=== PATIENT | male | born 1985 | race Caucasian/White ===

== ENCOUNTER → 2019-12-20 11:08 | Outpatient (BNVA) | payer SELFPAY | PROVIDERS: Family Provider Nurse Practitioner; PCP Nurse Practitioner; Visit Provider Urology | DX: N41.1 Chronic prostatitis (principal); R35.0 Frequency of micturition | CPT/HCPCS: 81001 ==

== ENCOUNTER → 2020-06-19 08:07 | Outpatient (BNVA) | payer SELFPAY | PROVIDERS: Family Provider Nurse Practitioner; PCP Nurse Practitioner; Visit Provider Urology | DX: N41.1 Chronic prostatitis (principal) | CPT/HCPCS: 81001 ==

== ENCOUNTER → 2020-09-26 15:58 | Outpatient (BNVA) | payer SELFPAY | PROVIDERS: Family Provider Nurse Practitioner; PCP Nurse Practitioner; Visit Provider Urology | DX: N41.1 Chronic prostatitis (principal) | CPT/HCPCS: 81003 ==

== ENCOUNTER 2021-05-10 08:31 | Emergency (ER) | payer SELFPAY ==
[2021-05-10 08:46] VITALS: BP 110/75; PULSE 83; RESP 16; TEMP 36.6; O2SAT 96; BMI 26.5
--- NOTE | 2021-05-10 09:01 | ED_ITS ---
HPI - Male Genitourinary General: Chief complaint: Urogenital-Male Stated complaint: swollen groin area Time Seen by Provider: 05/10/21 08:55 History of Present Illness: HPI Narrative: 36-year-old male presents emergency room with prostatitis symptoms. He is chronically on ciprofloxacin for prolonged period of time. He usually sees Dr. Hernandez is worsening overnight increasing swelling. MD Complaint: testicle swelling Onset (ago): month(s) Duration: constant and progressively worsening Severity: moderate Quality: aching Associated symptoms: Reports swelling; Deny discharge, dysuria, fevers/chills, hematuria, nausea, rash, urinary incontinence, urinary retention or vomiting Review of Systems Const: Denies: fever(s), chills, body aches, change in appetite, fatigue or malaise ENMT: Denies: throat pain, ear or mastoid pain, nasal discharge or nasal congestion Card: Denies: chest pain, edema, dyspnea on exertion or orthopnea Resp: Denies: dyspnea, productive cough or non-productive cough GI: Denies: nausea or vomiting : Denies: dysuria, urinary incontinence or hematuria Skin/Breast: Denies: rash or pruritus PFSH ED PFSH: Medical History Chronic prostatitis History of torsion of testis Surgical History H/O cardiac radiofrequency ablation H/O hernia repair H/O knee surgery Family History Father Alcoholism Social History Smoking and tobacco status: former smoker Alcohol intake: current Alcohol intake frequency: few times a week Marital status: Single Current occupational status: employed Physical Exam Const: COMMON NORMALS: no acute distress GENERAL APPEARANCE: cooperative and comfortable ORIENTATION/CONSCIOUSNESS: Yes awake, Yes oriented to person, Yes oriented to place and Yes oriented to time HENMT: COMMON NORMALS: normocephalic, atraumatic and hearing grossly normal bilaterally HEAD & SCALP: normocephalic and atraumatic Neck/C-Spine: COMMON NORMALS: no JVD Resp: COMMON NORMALS: normal respiratory effort, No retractions, No use of accessory muscles and clear to auscultation bilaterally AUSCULTATION: clear to auscultation bilaterally Cardio: COMMON NORMALS: no JVD, regular rate, regular rhythm and No murmurs present (Cardio) RATE: regular rate RHYTHM: regular rhythm GI: COMMON NORMALS: Soft to palpation and No hepatosplenomegaly present AUSCULTATION: Yes normoactive bowel sounds PALPATION: Yes Soft to palpation, No Tenderness to palpation present (GI), No Guarding due to palpation present (GI) and Yes No hepatosplenomegaly present : SCROTUM: Yes Scrotal tenderness present, No erythematous and Yes other (Palpable mass of the left testicle) Extremity: COMMON NORMALS: normal to inspection, capillary refill normal, no clubbing, cyanosis or edema, no calf tenderness and no pedal edema Neuro: SENSORIUM/ORIENTATION: Yes oriented to person, Yes oriented to place and Yes oriented to time Skin: COMMON NORMALS: no rashes or lesions noted GENERAL SKIN EXAM: no rashes or lesions noted Course Vital Signs: Vital signs: Vital Signs Temperature 97.9 F 05/10/21 08:46 Pulse Rate 58 L 05/10/21 12:03 Respiratory Rate 14 05/10/21 12:03 Blood Pressure 110/60 05/10/21 12:03 Pulse Oximetry 98 05/10/21 12:03 MDM - Male MDM Narrative: Medical decision making narrative: Reviewed ultrasound with patient as well as with Dr. Hernandez. Will discharge patient home with hydrocodone diclofenac as needed continue ciprofloxacin and have him follow-up with Dr. Hernandez next week. Return if has further problems. Lab Data: Labs: Lab Results 05/10/21 05/10/21 05/10/21 Range/Units 09:15 09:19 09:19 WBC 5.5 (4.0-10.0) 10^3/ uL RBC 5.02 (4.1-5.3) 10^6/u L Hgb 15.7 (11.7-16.6) g/dL Hct 46.7 (42.0-52.0) % MCV 93.0 (80-94) fL MCH 31.3 (28.0-34.0) pg MCHC 33.6 (30.0-36.0) g/dL RDW 13.2 (12.1-15.1) % Plt Count 198 (130-400) 10^3/c mm MPV 9.9 (7.4-10.4) fL Neut % (Auto) 47.1 % Lymph % (Auto) 33.8 % [place] % (Auto) 12.7 % Eos % (Auto) 4.9 % Baso % (Auto) 1.3 % Neut # (Auto) 2.61 (1.8-7.7) 10^3/u L Lymph # (Auto) 1.9 (0.8-4.8) 10^3/u L [place] # (Auto) 0.7 (0.2-0.9) 10^3/u L Eos # (Auto) 0.3 (0.0-0.8) 10^3/u L Baso # (Auto) 0.1 (0.0-0.1) 10^3/u L Nucleated RBC % (a uto) 0 % Nucleated RBCs # 0.0 /100WBC Sodium 143 (136-145) mmol/L Potassium 4.5 (3.5-5.1) mmol/L Chloride 104 (98-107) mmol/L Carbon Dioxide 28 (22-29) mmol/L Anion Gap 15.5 (5-19) BUN 11 (6-20) mg/dL Creatinine 1.1 (0.7-1.2) mg/dL GFR Calculation 76.2 L (90-130) mL/min Glucose 76 (65-115) mg/dL Calculated Osmolal ity 294 (285-295) mOsm/k g Calcium 9.3 (8.5-10.5) mg/dL Total Bilirubin 0.8 (0.15-1.2) mg/dL AST 36 (0-40) U/L ALT 32 (0-41) U/L Alkaline Phosphata se 46 (40-130) IU/L Total Protein 6.8 (6.6-8.7) g/dL Albumin 4.7 (3.5-5.2) g/dL Globulin 2.1 (1.3-4.6) g/dL Urine Color Yellow (Yellow) Urine Appearance Clear (CLEAR) Urine pH 9 H (5-7) Ur Specific Gravit y 1.010 (1.005-1.030) Urine Protein Neg (Negative) Urine Glucose (UA) Norm (Normal) Urine Ketones Negative (Negative) Urine Blood Neg (Negative) Urine Nitrate Negative (Negative) Urine Bilirubin Neg (Negative) Prot Sulfosalicyli c Acd Negative (Negative) Urine Urobilinogen Norm (Negative) mg/dL Ur Leukocyte Suha ase Negative (Negative) Discharge Plan Discharge Patient Disposition: Home Clinical Impression: Mass of left testicle Condition: Stable Prescriptions: New hydrocodone-acetaminophen 5-325 mg tablet 1 tab PO Q6H PRN (Reason: pain) Qty: 25 RF: 0 diclofenac sodium 75 mg tablet,delayed release (DR/EC) 75 mg PO Q12H PRN (Reason: pain) Qty: 20 RF: 0 No Action Quercetin PO RF: 0 Prostate Therapy Capsule PO RF: 0 ciprofloxacin HCl 500 mg tablet See Rx Instructions .ROUTE .COMPLEX Qty: 60 RF: 4 Discharge Orders: Discharge ED (Routine); Ordered 05/10/21 Ordered By: Immanuel Pack Discharge Diet: Usual diet Discharge Activity: Limit activity as instructed Patient Instructions: Opioid Safety Activity Restrictions/Additional Instructions: Case management will call to get you set up to see the urologist. Coding Level of Care Code ED Road Mechanic for Ceci Coronel
--- NOTE | 2021-05-10 09:11 | US_ITS ---
WS: [id number] TESTICULAR ULTRASOUND HISTORY: L testicle mass/swellibng COMPARISON: 11/15/2017 TECHNIQUE: Real-time and color Doppler imaging or utilized to perform a testicular ultrasound. Right testicle: 4.8 cm x 2.9 cm x 2.0 cm. Normal size and echogenicity. No mass or torsion. Normal color Doppler is present throughout. Systolic and diastolic velocities are both present. No significant hydrocele. Right epididymis: Mildly prominent epididymis but no increased vascularity. Left testicle: 3.7 cm x 2.9 cm x 2.0 cm. There is a normal sized testicle. As seen on the sagittal view is a nodule associated with the LEFT t esticle. This corresponds to the palpable abnormality the patient is describing. This nodule is very poorly defined and isoechoic to the remaining normal testicle. This area measures 2.1 x 2.2 x 1.9 cm and there is some increased vascularity but similar to the remaining testicle. Normal color Doppler is present throughout. Systolic and diastolic velocities are both present. No significant hydrocele. Left epididymis: Mildly prominent but no increased vascularity. US/US scrotum [id number] IMPRESSION: 1. Isoechoic nodule in the LEFT testicle is associated with the palpable area that is painful and enlarging as described by the patient. This is very nearly isoechoic to the remaining testicle but there are very ill-defined borders. As this area is new and painful consider urological follow-up and possible surgica l evaluation. If surgery is not performed consider ultrasound follow-up in 4-6 weeks to be sure there is no enlargement. 2. No torsion or epididymitis.
[2021-05-10 09:27] LABS: Add Urine Microscopic? NO; Charge for UA Resulting for Rev
[2021-05-10] MEDS: ketorolac 60 mg/2 mL INJ IM (09:28)
[2021-05-10] MEDS: sodium chloride 0.9% 1,000 ML 999 ML IV (09:28)
[2021-05-10 09:29] LABS: Basophils # 0.1 10^3/uL (0.0-0.1); Basophils % 1.3 %; Eosinophils # 0.3 10^3/uL (0.0-0.8); Eosinophils % 4.9 %; Hematocrit 46.7 % (42.0-52.0); Hemoglobin 15.7 g/dL (11.7-16.6); Lymphocytes # 1.9 10^3/uL (0.8-4.8); Lymphocytes % 33.8 %; Mean Corpuscular HGB Conc 33.6 g/dL (30.0-36.0); Mean Corpuscular Hemoglobin 31.3 pg (28.0-34.0); Mean Platelet Volume 9.9 fL (7.4-10.4); Monocytes # 0.7 10^3/uL (0.2-0.9); Monocytes % 12.7 %; Neutrophils # 2.61 10^3/uL (1.8-7.7); Neutrophils % 47.1 %; Nucleated Red Blood Cells % 0 %; Platelet Count 198 10^3/cmm (130-400); Red Blood Count 5.02 10^6/uL (4.1-5.3); Red Cell Distribution Width 13.2 % (12.1-15.1); White Blood Count 5.5 10^3/uL (4.0-10.0)
[2021-05-10 09:45] LABS: Bilirubin Urine Neg (Negative); Blood Urine Neg (Negative); Glucose Urine UA Norm (Normal); Ketones Urine Negative (Negative); Leukocyte Esterase Urine Negative (Negative); Nitrate Urine Negative (Negative); Protein Urine Neg (Negative); Sulfosalicylic Acid Urine Negative (Negative); Urine Appearance Clear (CLEAR); Urine Color Yellow (Yellow); Urobilinogen Urine Norm (Negative); pH Urine 9 (5-7)
[2021-05-10 09:56] LABS: Alanine Aminotransferase 32 U/L (0-41); Albumin Level 4.7 g/dL (3.5-5.2); Alkaline Phosphatase 46 IU/L (40-130); Anion Gap 15.5 (5-19); Aspartate Amino Transferase 36 U/L (0-40); Blood Urea Nitrogen 11 mg/dL (6-20); Calcium 9.3 mg/dL (8.5-10.5); Carbon Dioxide 28 mmol/L (22-29); Chloride 104 mmol/L (98-107); Globulin 2.1 g/dL (1.3-4.6); Glomerular Filtration Rate 76.2 mL/min (90-130); Glucose 76 mg/dL (65-115); Osmolality Calculated 294 mOsm/kg (285-295); Potassium 4.5 mmol/L (3.5-5.1); Sodium 143 mmol/L (136-145); Total Bilirubin 0.8 mg/dL (0.15-1.2); Total Protein 6.8 g/dL (6.6-8.7)
[2021-05-10 10:41] VITALS: BP 100/53; RESP 16; O2SAT 98
[2021-05-10 12:03] VITALS: BP 110/60; PULSE 58; RESP 14; O2SAT 98
== END 2021-05-10 12:43 | disposition home or self-care (01) ==
PROVIDERS: Emergency Provider Family Medicine
DX: N50.9 Disorder of male genital organs, unspecified (principal); Z87.891 Personal history of nicotine dependence
CPT/HCPCS: 36415; 76870; 80053; 81003; 85025; 87040; 96360; 96372; 99283; J1885; J7030

== ENCOUNTER 2021-08-25 10:10 | Emergency (ER) | payer SELFPAY ==
[2021-08-25 11:21] VITALS: BP 101/65; PULSE 83; RESP 24; O2SAT 97; BMI 25.1
--- NOTE | 2021-08-25 11:44 | W.ED.SKABFB ---
HPI - Skin/Abscess/Foreign Bdy General: Chief complaint: General Medical Stated complaint: NOSE PAIN Time Seen by Provider: 08/25/21 11:35 Source: patient Mode of arrival: ambulatory Limitations: no limitations History of Present Illness: HPI narrative: Patient is a 36-year-old male who presents to ED today with a complaint of a nose infection. Patient tells me 1 to 2 days ago he noticed an ingrown hair to his right nare that he picked at. Patient states since that time the tip of his nose has been red, swollen, and extremely painful. He is not complaining of a headache, no visual changes, no facial nerve deficits, no fevers. Patient also tells me at some point he believes he had a seizure prior to arrival but adamantly denies any form of work-up for this. 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 MD complaint: abscess/boil Onset (ago): day(s) Tetanus up to date: yes Location: face (nose) Severity: moderate Pain Consistency: constant Relieving factors: none Exacerbating factors: palpation Context: other (ingrown hair) Associated symptoms: Reports no associated symptoms; Deny chills, fever(s), nausea or vomiting Treatments prior to arrival: attempted to drain pus at home Review of Systems Const: Denies: fever(s), chills, body aches, fatigue or malaise Eyes: Denies: change in vision, blurry vision, photophobia, floaters or seeing flashes ENMT: Denies: throat pain, odynophagia, mouth pain, oral sores, dental pain, ear or mastoid pain, nasal discharge, nasal congestion, epistaxis or post nasal drip Card: Denies: chest pain Resp: Denies: dyspnea GI: Denies: nausea or vomiting Musc: Denies: neck pain Skin/Breast: Denies: rash Neuro: Denies: headache(s), numbness in extremities, weakness in extremities, sensory changes, difficulty walking, dizziness, confusion, behavioral changes, Slurred speech present or difficulty communicating thoughts PFS ED PFSH: Medical History Chronic prostatitis History of torsion of testis Surgical History H/O cardiac radiofrequency ablation H/O hernia repair H/O knee surgery Family History Father Alcoholism Social History (Updated 06/14/21 @ 10:06 by Ann Marie Rivera LPN) Smoking and tobacco status: former smoker Alcohol intake: current Alcohol intake frequency: few times a week Marital status: Single Current occupational status: employed History of recent travel: No Physical Exam Const: COMMON NORMALS: no acute distress, patient oriented x3, no limitations and alert GENERAL APPEARANCE: cooperative ORIENTATION/CONSCIOUSNESS: Yes awake, Yes oriented to person, Yes oriented to place and Yes oriented to time HENMT: COMMON NORMALS: normocephalic, atraumatic, hearing grossly normal bilaterally, external ears normal, EAC's normal, TM's normal bilaterally, oropharynx normal and gingiva normal HEAD & SCALP: normal to inspection, normocephalic and atraumatic FACE & SINUS: normal facial exam, sinuses nontender and face symmetric; no sinus tenderness NOSE: Other nasal findings present (see below) EXTERNAL EAR: Yes external ears normal EXTERNAL AUDITORY CANAL: EAC's normal TYMPANIC MEMBRANE: TM's normal bilaterally MOUTH: Normal oral and palatal mucosa present, lip normal and tongue normal TEETH & GINGIVA: Yes poor dentition THROAT: posterior oropharynx normal, tonsils normal and uvula midline OTHER: patient has mild swelling to distal tip of nose and redness/swelling noted to medial/lateral jesse; he has swelling to bilateral nasal septal cartilage and on R side there is a small amount of purulent drainage noted (culture obtained); patient does not tolerate any form of physical exam Eye: COMMON NORMALS: Equal, round and reactive pupils present and EOMs intact bilaterally GENERAL EYE: appearance normal, both eyes and all related structures PUPIL: Yes Equal, round and reactive pupils present Neck/C-Spine: COMMON NORMALS: full ROM, no lymphadenopathy and no meningeal signs Neuro: DICK COMA SCALE: document GCS findings [place] coma scale eye opening: Spontaneous Dick coma scale verbal response: Orientated [place] coma scale motor response: Obey commands [place] coma scale total score: 15 COMMON NORMALS: patient oriented x3, CN's II-XII intact bilaterally, moves all extremities, no focal motor deficits and no sensory deficits noted SENSORIUM/ORIENTATION: Yes alert, Yes oriented to person, Yes oriented to place and Yes oriented to time MENINGEAL SIGNS: Yes no meningeal signs Course Vital Signs: Vital signs: Vital Signs Pulse Rate 83 08/25/21 11:21 Respiratory Rate 24 H 08/25/21 11:21 Blood Pressure 101/65 08/25/21 11:21 Pulse Oximetry 97 08/25/21 11:21 MDM - Skin/Abscess/Foreign Bdy MDM Narrative: Medical decision making narrative: We will set patient up with ENT as soon as possible for further evaluation of a possible nasal septal abscess. Strict return to ED precautions given. Culture obtained off small amount of drainage present. Patient refusing any form of work up for seizures at this time. He states he simply wants antibiotics . Discussed how these infections can become serious and sometimes even life threatening if not managed properly. He verbalizes understanding. Will have CM set him up with ENT as soon as possible for further evaluation. Discharge Plan Discharge Patient Disposition: Home Clinical Impression: Abscess of nasal septum Condition: Stable Prescriptions: New hydrocodone-acetaminophen 5-325 mg tablet 1 tab PO Q6H PRN (Reason: pain) Qty: 14 RF: 0 Augmentin 875-125 mg tablet 1 tab PO Q12H 7 Days Qty: 14 RF: 0 No Action Quercetin PO RF: 0 ciprofloxacin HCl 500 mg tablet See Rx Instructions .ROUTE .COMPLEX Qty: 60 RF: 4 Discharge Orders: Discharge ED (Routine); Ordered 08/25/21 Ordered By: Sharee Jaeger Patient Instructions: Opioid Safety Activity Restrictions/Additional Instructions: [facility] is committed to fighting the nationwide opiate epidemic. We are providing ALL patients with information regarding opiate safety. If you received opiate pain medication during your stay or if you received a prescription for opiate pain medication-please review this handout. If not, you may disregard. Thank you. As we discussed it is imperative that you follow-up with ENT as these infections can become severe. Case management should contact you shortly to set you up with this appointment. Begin antibiotics immediately. Monitor for worsening symptoms such as increased pain, drainage, swelling, severe headache, visual changes, fevers, or any other concerns you may have. To return to the ED immediately if any of the symptoms occur. Coding Level of Care Code ED Office Automation Clerk for Ceci Coronel Exam Detailed
--- NOTE | 2021-08-26 10:06 | DCPLANNER ---
food beverage manager had message to schedule a follow up appointment for patient with ENT. food beverage manager emailed patients information to Angely Martinez and Odalis at [facility] General Surgery / ENT. Patients information will be printed and reviewed. Clinic will call patient with appointment information.
--- NOTE | 2021-08-27 15:46 | PC.NURSE ---
Rx changed to Bactrim DS 1 tab po BID x 10 days Quit Augmentin Pt has been informed of the Rx changes
--- NOTE | 2021-09-06 12:48 | DCPLANNER ---
Patient had a follow up appointment scheduled for 09.05.21 with ENT - patient did attend appointment.
== END 2021-08-25 12:15 | disposition home or self-care (01) ==
PROVIDERS: Emergency Provider Physician Assistant
DX: J34.0 Abscess, furuncle and carbuncle of nose (principal); Z87.891 Personal history of nicotine dependence
CPT/HCPCS: 87070; 87075; 87077; 87186; 87205; 99281

== ENCOUNTER 2021-09-12 08:21 | Outpatient (CLI) | payer SELFPAY ==
--- NOTE | 2021-09-12 08:45 | US_ITS ---
WS: [id number] TESTICULAR ULTRASOUND HISTORY: TORSION OF TESTICULAR APPENDAGE COMPARISON: 05/10/2021 TECHNIQUE: Real-time and color Doppler imaging or utilized to perform a testicular ultrasound. Right testicle: 4.7 cm x 2.5 cm x 2.6 cm. Normal size and echogenicity. No mass or torsion. Normal color Doppler is present throughout. Systolic and diastolic velocities are both present. No significant hydrocele. Right epididymis: Normal epididymis with no increased vascularity. Left testicle: 4.1 cm x 2.3 cm x 2.1 cm. Normal size and echogenicity. No mass or torsion. The area of mild heterogeneity seen on the prior ul trasound is no longer present. Normal color Doppler is present throughout. Systolic and diastolic velocities are both present. No significant hydrocele. Left epididymis: Normal epididymis with no increased vascularity. US/US scrotum [id number] IMPRESSION: NORMAL TESTICULAR ULTRASOUND. Previously described very mild heterogeneity within the LEFT testicle is no julian jyoti apparent. This may have been postinflammatory or an ultrasound artifact.
== END 2021-09-12 08:22 | disposition home or self-care (01) ==
LOC: RAD 08:24
PROVIDERS: Visit Provider Urology
DX: N44.03 Torsion of appendix testis (principal)
CPT/HCPCS: 76870

== ENCOUNTER 2021-10-09 15:37 | Emergency (ER) | payer SELFPAY ==
[2021-10-09 15:45] VITALS: BP 144/93; PULSE 100; RESP 16; TEMP 36.8; O2SAT 100
[2021-10-11 00:16] LABS: Glucose Point of Care 101 mg/dL (70-110)
== END 2021-10-09 19:52 ==
PROVIDERS: Emergency Provider Physician Assistant
DX: Z53.21 Procedure and treatment not carried out due to patient leaving prior to being seen by health care provider (principal)
CPT/HCPCS: 36416; 82962; 99281

== ENCOUNTER 2022-06-10 19:17 | Emergency (ER) | payer OTHER, SELFPAY ==
--- NOTE | 2022-06-10 19:18 | XRR_ITS ---
PROCEDURE INFORMATION: Exam: XR Left Knee Exam date and time: 06/10/2022 9:26 PM Age: 37 years old Clinical indication: Pain; Knee; Left TECHNIQUE: Imaging protocol: Radiologic exam of the Left knee. Views: 3 views. COMPARISON: No relevant prior studies available. FINDINGS: Bones/joints: Normal. Soft tissues: Mild anterior periarticular soft tissue swelling. XR/XR knee LT 3V* [id number] IMPRESSION: No acute osseous findings.
[2022-06-10 19:32] VITALS: BP 151/89; PULSE 104; RESP 18; TEMP 36.8; O2SAT 99; BMI 25.1
--- NOTE | 2022-06-10 21:59 | W.ED.GENADLT ---
HPI - General Adult General: Chief complaint: Extremity Problem,Nontraumatic Stated complaint: LT knee swollen/red Time Seen by Provider: 06/10/22 21:26 History of Present Illness: Patient is a 37-year-old male with history of prostatitis, previous infective bursitis presenting to the emergency with complaints of left knee pain swelling and redness. Patient tells me that he was working out 3 days ago at home when he bumped his left knee. Since then, he has noticed redness of the left knee and mild swelling. Since 3 days ago, patient has noticed that L knee redness has spread to his proximal tib-fib area on the lateral aspect. Patient is concerned and decided come to the emergency room. Patient tells me that he has no fever or chills, but has mild pain with range of motion of the left knee. Patient denies any history of IV drug use. Patient does not know that he currently has diabetes. Patient denies any history of HIV or transplant. Patient has no prior history of septic joints. Patient denies any trauma or injuries to the left knee. Onset: 3 days ago Duration:3 days Location:home Severity:moderate Associated symptoms: Deny chest pain, dyspnea, nausea, palpitations or vomiting Review of Systems Const: Denies: fever(s) or chills Eyes: Denies: change in vision ENMT: Denies: mouth pain Card: Denies: chest pain or palpitations Resp: Denies: dyspnea or non-productive cough GI: Denies: abdominal pain, nausea, vomiting or diarrhea : Denies: dysuria Musc: Reports: other (+mild L anterior knee swelling, mild pain with ROM of the L knee); Denies: extremity pain Skin/Breast: Reports: new lesions (+L knee erythema and warmth and L proximal tibial erythema) Neuro: Denies: weakness in extremities Psych: Reports: other (Normal mood) Jose M/Lymph: Denies: easy bruising PFSH ED PFSH: Medical History Chronic prostatitis History of torsion of testis Surgical History H/O cardiac radiofrequency ablation H/O hernia repair H/O knee surgery Family History Father Alcoholism Social History Smoking and tobacco status: former smoker Alcohol intake: current Alcohol intake frequency: few times a week Marital status: Single Current occupational status: employed History of recent travel: No Physical Exam Const: COMMON NORMALS: alert HENMT: COMMON NORMALS: atraumatic HEAD & SCALP: atraumatic MOUTH: moist mucous membranes not abnormal Eye: COMMON NORMALS: EOMs intact bilaterally and conjunctivae normal CONJUNCTIVA: Yes conjunctivae normal Neck/C-Spine: COMMON NORMALS: full ROM and supple Resp: COMMON NORMALS: normal respiratory effort and clear to auscultation bilaterally AUSCULTATION: clear to auscultation bilaterally Cardio: COMMON NORMALS: regular rate RATE: regular rate GI: COMMON NORMALS: Soft to palpation and non-tender PALPATION: Yes Soft to palpation Extremity: COMMON NORMALS: full ROM NARRATIVE EXTREMITY EXAM: + Range of motion of the left knee intact, mild prepatellar swelling noted on the lateral aspect with warmth to palpation. Patient is able to bear weight on the left knee. 2+ radial DP/PT pulses on the left side, cap refill less than 3 seconds, sensation and strength intact in the left lower extremity + Mild erythema of the left knee with extension to lateral proximal tibia Neuro: SENSORIUM/ORIENTATION: Yes alert MOTOR EXAM: No Abnormal motor strength present and Other motor observations present (no focal motor deficits) Psych: COMMON NORMALS: speech normal SPEECH: Yes normal speech MOOD & AFFECT: Yes euthymic mood Skin: NARRATIVE SKIN EXAM: + Mild erythema of the left knee with extension to lateral proximal tibia Course Vital Signs: Vital signs: Vital Signs Temperature 98.2 F 06/10/22 19:32 Pulse Rate 91 06/10/22 22:59 Respiratory Rate 16 06/10/22 22:59 Blood Pressure 127/86 06/10/22 22:59 Pulse Oximetry 100 06/10/22 22:59 Oxygen Delivery Me thod 06/10/22 22:59 [facility] - General Adult Medical Decision Making 37-year-old male with a history of prostatitis, testicular torsion presenting to the emergency with complaints of left knee swelling pain and erythema that has spread to the proximal tib-fib area for the last 3 days. On exam, patient is afebrile, hemodynamically stable. Patient is able to range the left knee without any problem. There is mild tenderness to palpation over the prepatellar bursa. Range of motion of left knee is intact. Neurovascular exam is intact. X-ray did not show any focal findings. White count 6.9. CRP of 7. ESR wnl. At the present time, given the fact that the patient is able to range the knee, the erythema spreading to the proximal tibia, patient has no signs of knee joint swelling other than patella patella bursa, I do not suspect that this is acute septic joint. Patient has a history of bursitis in the past. Suspect that this is similar today. Patient has allergies to Bactrim, ciprofloxacin, vancomycin in the past. Patient request for other medication. I discussed case with pharmacy who recommended starting patient on linezolid and Augmentin. He received the first dose of linezolid and Augmentin in the emergency room. Patient's heart rate improved without any reassessment in the emergency room. Patient is able to ambulate without any difficulty. Patient is given strict return precaution for any worsening spread, knee pain, inability to range the knee, fever/chills, as these could be signs of deeper infection. Rx linozolid and augmentin for possible early bursitis and cellulitis We have marked the outer borders of the left knee/ L proximal tib/fib cellulitis. I will have patient follow-up closely in the next 24 to 48 hours for reassessment. Disposition: Discharge. Patient counseled regarding diagnostic impression, treatment plan. Patient given ED strict return precautions to return for continuation, worsening, or development of new symptoms. Instructed to f/u w/ PCP regarding symptoms today. Patient verbalized understanding. Lab Data : 06/10/22 21:51 06/10/22 21:51 Radiology Impressions Knee X-Ray 06/10/22 19:18 IMPRESSION: No acute osseous findings. Laboratory Results WBC 6.9 10^3/uL (4.0-10.0) 06/10/22 21:51 RBC 4.81 10^6/uL (4.1-5.3) 06/10/22 21:51 Hgb 15.1 g/dL (11.7-16.6) 06/10/22 21:51 Hct 44.4 % (42.0-52.0) 06/10/22 21:51 MCV 92.3 fl (80-94) 06/10/22 21:51 MCH 31.4 pg (28.0-34.0) 06/10/22 21:51 MCHC 34.0 g/dL (30.0-36.0) 06/10/22 21:51 RDW 12.3 % (12.1-15.1) 06/10/22 21:51 Plt Count 196 10^3/cmm (130-400) 06/10/22 21:51 MPV 9.8 fL (7.4-10.4) 06/10/22 21:51 Neut % (Auto) 44.0 % 06/10/22 21:51 Lymph % (Auto) 38.0 % 06/10/22 21:51 [place] % (Auto) 14.7 % 06/10/22 21:51 Eos % (Auto) 2.6 % 06/10/22 21:51 Baso % (Auto) 0.6 % 06/10/22 21:51 Neut # (Auto) 3.03 10^3/uL (1.8-7.7) 06/10/22 21:51 Lymph # (Auto) 2.6 10^3/uL (0.8-4.8) 06/10/22 21:51 [place] # (Auto) 1.0 10^3/uL (0.2-0.9) H 06/10/22 21:51 Eos # (Auto) 0.2 10^3/uL (0.0-0.8) 06/10/22 21:51 Baso # (Auto) 0.0 10^3/uL (0.0-0.1) 06/10/22 21:51 Nucleated RBC % (auto) 0 % 06/10/22 21:51 Nucleated RBCs # 0.0 /100WBC 06/10/22 21:51 ESR 5 mm/hr (0-10) 06/10/22 21:51 PT 13.70 SECONDS (12.1-14.9) 06/10/22 21:51 INR 1.02 (0.8-1.2) 06/10/22 21:51 APTT 28.9 SECONDS (23.9-36.7) 06/10/22 21:51 Sodium 139 mmol/L (136-145) 06/10/22 21:51 Potassium 3.9 mmol/L (3.5-5.1) 06/10/22 21:51 Chloride 102 mmol/L (98-107) 06/10/22 21:51 Carbon Dioxide 27 mmol/L (22-29) 06/10/22 21:51 Anion Gap 13.9 (5-19) 06/10/22 21:51 BUN 18 mg/dL (6-20) 06/10/22 21:51 Creatinine 0.8 mg/dL (0.7-1.2) 06/10/22 21:51 GFR Calculation 109.4 mL/min (90-130) 06/10/22 21:51 Glucose 82 mg/dL (65-115) 06/10/22 21:51 Calculated Osmolality 289 mOsm/kg (285-295) 06/10/22 21:51 Calcium 9.6 mg/dL (8.5-10.5) 06/10/22 21:51 C-Reactive Protein 7.4 mg/L (0.0-4.9) H 06/10/22 21:51 Imaging Data Other Imaging: Radiologist's impression: [employer] [place] [address] XRay Report Signed Patient: Florentin Borjas Unit #: [id number] : [id number] Age/Sex: 37 / M ADM Date: 06/10/22 Loc: ER Room/Bed: Attending Dr: Ordering Provider/Ordering MD: Mirtha Holland MD Date of Service: 06/10/22 Procedure(s): XR knee LT 3V* [id number] Accession Number(s): [id number] Report Number: [id number] PROCEDURE INFORMATION: Exam: XR Left Knee Exam date and time: 06/10/2022 9:26 PM Age: 37 years old Clinical indication: Pain; Knee; Left TECHNIQUE: Imaging protocol: Radiologic exam of the Left knee. Views: 3 views. COMPARISON: No relevant prior studies available. FINDINGS: Bones/joints: Normal. Soft tissues:? Mild anterior periarticular soft tissue swelling. XR/XR knee LT 3V* [id number] IMPRESSION: No acute osseous findings. ? Dictated By: Manolo Thomas Signed By: Manolo Thomas Signed Date/Time: 06/10/222150 DD/ 25 Discharge Plan Discharge Patient Disposition: Home Clinical Impression: Bursitis, Cellulitis Condition: Stable Prescriptions: New Zyvox 600 mg tablet 600 mg PO BID 10 Days Qty: 20 0RF amoxicillin-pot clavulanate 875-125 mg tablet 1 tab PO BID 10 Days Qty: 20 0RF No Action amoxicillin-pot clavulanate [Augmentin] 875-125 mg tablet 1 tab PO TID PRN (Reason: Nasal vestibulitis/cellulitis) 21 Days Qty: 63 0RF mupirocin 2 % ointment 1 applic topical TID 90 Days Qty: 22 6RF Discharge Orders: Discharge ED (Routine); Ordered 06/10/22 Ordered By: Stephenie Robles Discharge Activity: Increase activity as tolerated Patient Instructions: Cellulitis (ED) Activity Restrictions/Additional Instructions: Please take your antibiotics as instructed. Watch out for signs of skin changes/redness, mouth redness or swelling, nausea/vomiting, diarrhea, blood in the urine or any new or concerning complaints. Please do not take your antibiotics with alcohol. Come back to the emergency room if any pain with range of motion of the knee, fever/chills, drainage, worsening redness, or any new external complaints Stand Alone Forms: Work/School Release Coding Level of Care Code ED Contact Center Representative for Ceci Fwleandro Exam Comprehensive
[2022-06-10 22:05] LABS: Basophils % 0.6 %; Eosinophils # 0.2 10^3/uL (0.0-0.8); Eosinophils % 2.6 %; Hematocrit 44.4 % (42.0-52.0); Hemoglobin 15.1 g/dL (11.7-16.6); Lymphocytes # 2.6 10^3/uL (0.8-4.8); Mean Corpuscular Hemoglobin 31.4 pg (28.0-34.0); Mean Corpuscular Volume 92.3 fl (80-94); Mean Platelet Volume 9.8 fL (7.4-10.4); Monocytes % 14.7 %; Neutrophils # 3.03 10^3/uL (1.8-7.7); Nucleated Red Blood Cells % 0 %; Platelet Count 196 10^3/cmm (130-400); Red Blood Count 4.81 10^6/uL (4.1-5.3); Red Cell Distribution Width 12.3 % (12.1-15.1); White Blood Count 6.9 10^3/uL (4.0-10.0)
--- NOTE | 2022-06-10 22:09 | PC.NURSE ---
Left knee red and swollen. SMC's intact. Worse with movement, but does have full ROM. Smc's intact. States he bumped his knee and it began getting red and swollen. HX of same to elbow in the past.
[2022-06-10 22:19] LABS: Erythrocyte Sedimentation Rate 5 mm/hr (0-10)
[2022-06-10] MEDS: amoxicillin-clav 875-125 mg Tablet 1 TAB PO (22:20)
[2022-06-10] MEDS: linezolid 600 mg Tablet PO (22:20)
[2022-06-10 22:24] LABS: INR 1.02 (0.8-1.2)
[2022-06-10 22:25] LABS: Partial Thromboplastin Time 28.9 SECONDS (23.9-36.7)
[2022-06-10 22:28] LABS: C Reactive Protein 7.4 mg/L (0.0-4.9)
[2022-06-10 22:32] LABS: Blood Urea Nitrogen 18 mg/dL (6-20); Calcium 9.6 mg/dL (8.5-10.5); Carbon Dioxide 27 mmol/L (22-29); Chloride 102 mmol/L (98-107); Glomerular Filtration Rate 109.4 mL/min (90-130); Glucose 82 mg/dL (65-115); Osmolality Calculated 289 mOsm/kg (285-295); Sodium 139 mmol/L (136-145)
[2022-06-10 22:36] VITALS: BP 132/86; PULSE 84; RESP 18; O2SAT 98
[2022-06-10 22:59] VITALS: BP 127/86; PULSE 91; RESP 16; O2SAT 100
[2022-06-10 23:11] LABS: Anion Gap 13.9 (5-19); Potassium 3.9 mmol/L (3.5-5.1)
== END 2022-06-10 23:02 | disposition home or self-care (01) ==
PROVIDERS: Emergency Medicine; Emergency Provider Emergency Medicine
DX: M70.52 Other bursitis of knee, left knee (principal); L03.116 Cellulitis of left lower limb; Z87.891 Personal history of nicotine dependence
CPT/HCPCS: 73562; 80048; 85025; 85610; 85651; 85730; 86140; 99284

== ENCOUNTER 2022-08-19 13:04 | Emergency (ER) | payer OTHER, SELFPAY ==
[2022-08-19 13:08] VITALS: BMI 24.3
[2022-08-19 13:15] LABS: Glucose Point of Care 106 mg/dL (70-110)
[2022-08-19 13:17] VITALS: BP 126/78; PULSE 108; RESP 18
--- NOTE | 2022-08-19 13:39 | W.ED.GENADLT ---
HPI - General Adult General: Chief complaint: Weakness Stated complaint: thinks about to seize Time Seen by Provider: 08/19/22 13:37 History of Present Illness: Patient is a 67-year-old male with a history of prior bursitis, MRSA infection who presents the emergency room with multiple complaints including feeling lightheaded, concerns for hypoglycemia and the possibly that he may have a seizure. Patient tells me that he has been feeling well in the last day. Patient tells me that about a year ago he was on treatment with ciprofloxacin for prostatitis. Since taking ciprofloxacin about a year ago, patient has had these episodes where he felt lightheaded. Oftentimes these lightheadedness associated with low glucose. Patient reports using marijuana but denies any other drug use. Patient has history of SVT at the age of 19 that required an ablation. Patient has no other complaints of any chest pain, shortness, cough, runny nose, sore throat, fever/chills, diarrhea melena/hematochezia. No new rash or any other focal complaints. Onset: acute on chronic Duration:ongoing Location:home Severity:moderate Associated symptoms: Deny chest pain, dyspnea, nausea, rash, palpitations or vomiting Review of Systems Const: Reports: fatigue and other (+generalized weakness); Denies: fever(s) or chills Eyes: Denies: change in vision ENMT: Denies: mouth pain Card: Denies: chest pain or palpitations Resp: Denies: dyspnea or non-productive cough GI: Denies: abdominal pain, nausea, vomiting or diarrhea : Denies: dysuria Musc: Denies: extremity pain Skin/Breast: Denies: rash or new lesions Neuro: Denies: weakness in extremities Psych: Reports: other (Normal mood) Jose M/Lymph: Denies: easy bruising PFSH ED PFSH: Medical History Chronic prostatitis History of torsion of testis Surgical History H/O cardiac radiofrequency ablation H/O hernia repair H/O knee surgery Family History Father Alcoholism Social History Smoking and tobacco status: former smoker Alcohol intake: current Alcohol intake frequency: few times a week Marital status: Single Current occupational status: employed History of recent travel: No Physical Exam Const: COMMON NORMALS: alert HENMT: COMMON NORMALS: atraumatic HEAD & SCALP: atraumatic MOUTH: moist mucous membranes abnormal Eye: COMMON NORMALS: EOMs intact bilaterally and conjunctivae normal CONJUNCTIVA: Yes conjunctivae normal Neck/C-Spine: COMMON NORMALS: full ROM and supple Resp: COMMON NORMALS: normal respiratory effort and clear to auscultation bilaterally AUSCULTATION: clear to auscultation bilaterally Cardio: RATE: tachycardic GI: COMMON NORMALS: Soft to palpation and non-tender PALPATION: Yes Soft to palpation Extremity: COMMON NORMALS: full ROM Neuro: SENSORIUM/ORIENTATION: Yes alert MOTOR EXAM: No Abnormal motor strength present and Other motor observations present (no focal motor deficits) Psych: COMMON NORMALS: speech normal SPEECH: Yes normal speech MOOD & AFFECT: Yes euthymic mood Course Vital Signs: Vital signs: Vital Signs Pulse Rate 87 08/19/22 14:58 Respiratory Rate 15 08/19/22 14:58 Blood Pressure 114/77 08/19/22 14:58 Pulse Oximetry 99 08/19/22 14:58 Oxygen Delivery Me thod 08/19/22 14:58 MDM - General Adult Medical Decision Making Patient is a 37-year-old male with a history of prior bursitis, MRSA infection who presents the emergency room with multiple complaints including feeling lightheaded, concerns for hypoglycemia and the possibly that he may have a seizure. Patient is AAOx3, answering all questions. Patient initially was noted to be tachycardic to the 100. Patient received IVF reports feeling significantly improved. Patient's glucose is 88 today. Patient does not have any signs of anion gap acidosis. Patient is noted to be significantly hemoconcentrated 18.1. Patient upon receiving fluids reports he feels a lot better. Urine showed urine showed amphetamine. Rest of lab work-up within normal limit clean D-dimer, TSH and T4. Patient at this time elects to go home. Disposition: Discharge. Patient counseled regarding diagnostic impression, treatment plan. Patient given ED strict return precautions to return for continuation, worsening, or development of new symptoms. Instructed to f/u w/ PCP regarding symptoms today. Patient verbalized understanding. Lab Data : 08/19/22 13:55 08/19/22 13:55 Laboratory Results WBC 6.1 10^3/uL (4.0-10.0) 08/19/22 13:55 RBC 5.72 10^6/uL (4.1-5.3) H 08/19/22 13:55 Hgb 18.0 g/dL (11.7-16.6) H 08/19/22 13:55 Hct 50.9 % (42.0-52.0) 08/19/22 13:55 MCV 89.0 fl (80-94) 08/19/22 13:55 MCH 31.5 pg (28.0-34.0) 08/19/22 13:55 MCHC 35.4 g/dL (30.0-36.0) 08/19/22 13:55 RDW 12.5 % (12.1-15.1) 08/19/22 13:55 Plt Count 247 10^3/cmm (130-400) 08/19/22 13:55 MPV 9.6 fL (7.4-10.4) 08/19/22 13:55 Neut % (Auto) 42.7 % 08/19/22 13:55 Lymph % (Auto) 41.3 % 08/19/22 13:55 [place] % (Auto) 10.3 % 08/19/22 13:55 Eos % (Auto) 4.1 % 08/19/22 13:55 Baso % (Auto) 1.3 % 08/19/22 13:55 Neut # (Auto) 2.62 10^3/uL (1.8-7.7) 08/19/22 13:55 Lymph # (Auto) 2.5 10^3/uL (0.8-4.8) 08/19/22 13:55 [place] # (Auto) 0.6 10^3/uL (0.2-0.9) 08/19/22 13:55 Eos # (Auto) 0.3 10^3/uL (0.0-0.8) 08/19/22 13:55 Baso # (Auto) 0.1 10^3/uL (0.0-0.1) 08/19/22 13:55 Nucleated RBC % (auto) 0 % 08/19/22 13:55 Nucleated RBCs # 0.0 /100WBC 08/19/22 13:55 D-Dimer <= 0.27 ug/mIFEU (0-0.59) 08/19/22 13:55 Sodium 136 mmol/L (136-145) 08/19/22 13:55 Potassium 3.6 mmol/L (3.5-5.1) 08/19/22 13:55 Chloride 96 mmol/L (98-107) L 08/19/22 13:55 Carbon Dioxide 24 mmol/L (22-29) 08/19/22 13:55 Anion Gap 19.6 (5-19) H 08/19/22 13:55 BUN 13 mg/dL (6-20) 08/19/22 13:55 Creatinine 0.9 mg/dL (0.7-1.2) 08/19/22 13:55 GFR Calculation 95.5 mL/min (90-130) 08/19/22 13:55 Glucose 88 mg/dL (65-115) 08/19/22 13:55 POC Glucose 106 mg/dL (70-110) 08/19/22 13:12 Calculated Osmolality 282 mOsm/kg (285-295) L 08/19/22 13:55 Calcium 10.5 mg/dL (8.5-10.5) 08/19/22 13:55 Total Bilirubin 0.4 mg/dL (0.15-1.2) 08/19/22 13:55 AST 28 U/L (0-40) 08/19/22 13:55 ALT 31 U/L (0-41) 08/19/22 13:55 Alkaline Phosphatase 58 U/L (40-130) 08/19/22 13:55 Total Protein 8.2 g/dL (6.6-8.7) 08/19/22 13:55 Albumin 5.2 g/dL (3.5-5.2) 08/19/22 13:55 Globulin 3.0 g/dL (1.3-4.6) 08/19/22 13:55 Lipase 46 U/L (13-60) 08/19/22 13:55 TSH 1.40 uIU/mL (0.27-4.20) 08/19/22 13:55 Free T4 1.59 ng/dL (0.82-1.77) 08/19/22 13:55 Urine Color Yellow (Yellow) 08/19/22 13:45 Urine Appearance Clear (CLEAR) 08/19/22 13:45 Urine pH 7 (5-7) 08/19/22 13:45 Ur Specific [place] 1.005 (1.005-1.030) 08/19/22 13:45 Urine Protein Neg (Negative) 08/19/22 13:45 Urine Glucose (UA) Norm (Normal) 08/19/22 13:45 Urine Ketones Negative (Negative) 08/19/22 13:45 Urine Blood Neg (Negative) 08/19/22 13:45 Urine Nitrate Negative (Negative) 08/19/22 13:45 Urine Bilirubin Neg (Negative) 08/19/22 13:45 Urine Urobilinogen Norm mg/dL (Negative) 08/19/22 13:45 Ur Leukocyte Esterase Negative (Negative) 08/19/22 13:45 Urine Opiates Screen Negative ng/mL (Negative) 08/19/22 13:45 Ur Barbiturates Screen Negative ng/mL (Negative) 08/19/22 13:45 Ur Phencyclidine Scrn Negative ng/mL (Negative) 08/19/22 13:45 Ur Amphetamines Screen Positive ng/mL (Negative) H 08/19/22 13:45 U Benzodiazepines Scrn Negative ng/mL (Negative) 08/19/22 13:45 Urine Cocaine Screen Negative ng/mL (Negative) 08/19/22 13:45 U Marijuana (THC) Screen Negative ng/mL (Negative) 08/19/22 13:45 Ethyl Alcohol < 10 mg/dL (0-10) 08/19/22 13:55 Serum Ketones Negative (Negative) 08/19/22 13:55 Discharge Plan Discharge Patient Disposition: Home Clinical Impression: Generalized weakness, Fatigue Condition: Stable Prescriptions: No Action amoxicillin-pot clavulanate [Augmentin] 875-125 mg tablet 1 tab PO TID PRN (Reason: Nasal vestibulitis/cellulitis) 21 Days Qty: 63 0RF mupirocin 2 % ointment 1 applic topical TID 90 Days Qty: 22 6RF Discharge Orders: Discharge ED (Routine); Ordered 08/19/22 Ordered By: Stephenie Valenzuela Diet: Advance as tolerated Discharge Activity: Increase activity as tolerated Activity Restrictions/Additional Instructions: Come back if you have any new or concerning issues. Come back to the emergency room if your have any chest pain, fever or chills, worsening shortness of breath, worsening exertional lightheadedness, or any new or concerning complaints. Coding Level of Care Code ED Unit Operator for Ceci Fwd Exam Comprehensive
--- NOTE | 2022-08-19 13:50 | PC.NURSE ---
Denies pain but reports tingling in head and bilat hands and ears ringing really loud. Reports about 11 today he became SOB, started tingling, blurry vision and feeling agitated.
[2022-08-19 13:53] VITALS: BP 134/87; PULSE 103; RESP 17; O2SAT 100
--- NOTE | 2022-08-19 13:54 | PC.NURSE ---
Patient stated he got his vision back at this time
[2022-08-19] MEDS: sodium chloride 0.9% 1,000 ML 999 ML IV ×2 (13:57→14:57)
--- NOTE | 2022-08-19 13:58 | PC.NURSE ---
Tingling has gone away in patients head
[2022-08-19 13:59] LABS: Add Urine Microscopic? NO; Charge for UA Resulting for Rev
[2022-08-19 14:03] LABS: Bilirubin Urine Neg (Negative); Blood Urine Neg (Negative); Glucose Urine UA Norm (Normal); Ketones Urine Negative (Negative); Leukocyte Esterase Urine Negative (Negative); Nitrate Urine Negative (Negative); Protein Urine Neg (Negative); Specific Gravity, Urine 1.005 (1.005-1.030); Urine Appearance Clear (CLEAR); Urine Color Yellow (Yellow); Urobilinogen Urine Norm (Negative); pH Urine 7 (5-7)
[2022-08-19 14:06] LABS: Basophils # 0.1 10^3/uL (0.0-0.1); Basophils % 1.3 %; Eosinophils # 0.3 10^3/uL (0.0-0.8); Eosinophils % 4.1 %; Hematocrit 50.9 % (42.0-52.0); Lymphocytes # 2.5 10^3/uL (0.8-4.8); Lymphocytes % 41.3 %; Mean Corpuscular HGB Conc 35.4 g/dL (30.0-36.0); Mean Corpuscular Hemoglobin 31.5 pg (28.0-34.0); Mean Platelet Volume 9.6 fL (7.4-10.4); Monocytes # 0.6 10^3/uL (0.2-0.9); Monocytes % 10.3 %; Neutrophils # 2.62 10^3/uL (1.8-7.7); Neutrophils % 42.7 %; Nucleated Red Blood Cells % 0 %; Platelet Count 247 10^3/cmm (130-400); Red Blood Count 5.72 10^6/uL (4.1-5.3); Red Cell Distribution Width 12.5 % (12.1-15.1); White Blood Count 6.1 10^3/uL (4.0-10.0)
[2022-08-19 14:12] LABS: Amphetamines Screen Urine Positive (Negative); Barbiturates Screen Urine Negative (Negative); Benzodiazepines Screen Urine Negative (Negative); Cocaine Screen Urine Negative (Negative); Opiate Screen Urine Negative (Negative); PCP Screen Urine Negative (Negative); THC Screen Urine Negative (Negative)
[2022-08-19 14:14] LABS: Ketone (Acetest) Serum Negative (Negative)
[2022-08-19 14:17] LABS: D Dimer <= 0.27 ug/mIFEU (0-0.59)
[2022-08-19 14:40] LABS: Alanine Aminotransferase 31 U/L (0-41); Albumin Level 5.2 g/dL (3.5-5.2); Alkaline Phosphatase 58 U/L (40-130); Aspartate Amino Transferase 28 U/L (0-40); Blood Urea Nitrogen 13 mg/dL (6-20); Calcium 10.5 mg/dL (8.5-10.5); Carbon Dioxide 24 mmol/L (22-29); Chloride 96 mmol/L (98-107); Free T4 Free Thyroxine 1.59 ng/dL (0.82-1.77); Glomerular Filtration Rate 95.5 mL/min (90-130); Glucose 88 mg/dL (65-115); Lipase 46 U/L (13-60); Osmolality Calculated 282 mOsm/kg (285-295); Sodium 136 mmol/L (136-145); Total Bilirubin 0.4 mg/dL (0.15-1.2); Total Protein 8.2 g/dL (6.6-8.7)
[2022-08-19 14:41] LABS: Alcohol Level < 10 mg/dL (0-10)
[2022-08-19 14:43] LABS: Anion Gap 19.6 (5-19); Potassium 3.6 mmol/L (3.5-5.1)
[2022-08-19 14:58] VITALS: BP 114/77; PULSE 87; RESP 15; O2SAT 99
[2022-08-19 15:52] VITALS: BP 121/81; PULSE 88; RESP 15; TEMP 36.9; O2SAT 99
== END 2022-08-19 15:57 | disposition home or self-care (01) ==
PROVIDERS: Emergency Provider Emergency Medicine
DX: R53.1 Weakness (principal); R53.83 Other fatigue; F15.10 Other stimulant abuse, uncomplicated; Z86.14 Personal history of Methicillin resistant Staphylococcus aureus infection
CPT/HCPCS: 36415; 36416; 80053; 80306; 80307; 81003; 82009; 82962; 83690; 84439; 84443; 85025; 85378; 96360; 96361; 99284; J7030

== ENCOUNTER 2022-10-05 04:49 | Emergency (ER) | payer OTHER, SELFPAY ==
[2022-10-05 04:53] VITALS: BP 139/78; PULSE 102; RESP 14; TEMP 36.8; O2SAT 100; BMI 25.3
--- NOTE | 2022-10-05 05:13 | XRR_ITS ---
PROCEDURE INFORMATION: Exam: XR Left Finger(s) Exam date and time: 10/05/2022 6:23 AM Age: 37 years old Clinical indication: Pain; Swelling; Fingers; Left; Finger(s); Additional info: Pain, swelling ? foreign body TECHNIQUE: Imaging protocol: Radiologic exam of the Left fingers. Views: Minimum 2 views. COMPARISON: No relevant prior studies available. FINDINGS: Bones/joints: Normal. Soft tissues: Normal. XR/XR finger LT min 2V [id number] IMPRESSION: No acute findings.
--- NOTE | 2022-10-05 05:19 | ED_ITS ---
HPI - Extremity Problem General: Chief complaint: Extremity Problem,Nontraumatic Stated complaint: metal in finger Time Seen by Provider: 10/05/22 05:13 Source: patient History of Present Illness: 37-year-old male with a history of MRSA infection. He states that he believes he got up small piece of metal stuck in the distal portion of his left index finger last week. It began to become painful, and the patient tried to get the metal piece out, opening his finger up partially with a razor blade. He woke this morning with swelling and increased pain to the whole of the finger. No streaking. No fever. No vomiting. Of note the patient endorses multiple adverse reactions to antibiotics in the past including doxycycline, Augmentin, linezolid, vancomycin, trimethoprim and sulfamethoxazole, as well as Levaquin. Complaint: extremity pain and extremity swelling Onset (ago): hour(s) Location: left and other (Index finger) Quality: burning and stabbing Radiation: proximal Relieving factors: nothing Associated symptoms: Reports rash; Deny chest pain or fever(s) Context: other Review of Systems Const: Denies: fever(s) Card: Denies: chest pain Resp: Denies: dyspnea GI: Reports: nausea; Denies: vomiting Skin/Breast: Reports: rash PFSH ED PFSH: Medical History Chronic prostatitis History of torsion of testis Surgical History H/O cardiac radiofrequency ablation H/O hernia repair H/O knee surgery Family History Father Alcoholism Social History Smoking and tobacco status: former smoker Alcohol intake: current Alcohol intake frequency: few times a week Marital status: Single Current occupational status: employed History of recent travel: No Physical Exam Const: COMMON NORMALS: no acute distress and patient oriented x3 GENERAL APPEARANCE: cooperative; not ill appearing HENMT: COMMON NORMALS: normocephalic, atraumatic and Normal external nose present HEAD & SCALP: normocephalic and atraumatic FACE & SINUS: normal facial exam and face symmetric NOSE: Normal external nose present Eye: COMMON NORMALS: Equal, round and reactive pupils present and EOMs intact bilaterally PUPIL: Yes Equal, round and reactive pupils present Chest: CHEST: Yes Symmetrical chest wall rise Resp: COMMON NORMALS: normal respiratory effort, No use of accessory muscles and clear to auscultation bilaterally AUSCULTATION: clear to auscultation bilaterally Cardio: COMMON NORMALS: regular rate and regular rhythm RATE: regular rate RHYTHM: regular rhythm Extremity: NARRATIVE EXTREMITY EXAM: Examination of the left index finger reveals diffuse swelling to the finger. Tendon function is intact. It is tender to palpation. It is slightly red. There is no definite abscess formation. Small very superficial laceration over the distal finger pad shows slight clear drainage. Neuro: COMMON NORMALS: patient oriented x3 Skin: NARRATIVE SKIN EXAM: See above. Course Vital Signs: Vital signs: Vital Signs Temperature 98.2 F 10/05/22 04:53 Pulse Rate 102 H 10/05/22 04:53 Respiratory Rate 14 10/05/22 04:53 Blood Pressure 139/78 10/05/22 04:53 Pulse Oximetry 100 10/05/22 04:53 Oxygen Delivery Me thod 10/05/22 04:53 MDM - Extremity (Nontraumatic) Medical Decision Making The patient is afebrile here. He has evidence of cellulitis to the finger. No FB. He'll be dc'd on abx Lab Data Radiology Impressions Finger X-Ray 10/05/22 05:13 IMPRESSION: No acute findings. Discharge Plan Discharge Patient Disposition: Home Clinical Impression: Cellulitis of finger Condition: Stable Prescriptions: New clindamycin HCl 300 mg capsule 300 mg PO TID 7 Days Qty: 21 0RF ketorolac 10 mg tablet 10 mg PO TID PRN (Reason: pain) Qty: 10 0RF Continued mupirocin 2 % ointment 1 applic topical TID 90 Days Qty: 22 6RF Discontinued amoxicillin-pot clavulanate [Augmentin] 875-125 mg tablet 1 tab PO TID PRN (Reason: Nasal vestibulitis/cellulitis) 21 Days Qty: 63 0RF Discharge Orders: Discharge ED (Routine); Ordered 10/05/22 Ordered By: Aashish Odonnell Patient Instructions: Cellulitis (ED) Activity Restrictions/Additional Instructions: Return for fever despite 3-4 doses of antibiotics, worsening pain or swelling despite 3-4 doses of antibiotics, other concerning symptoms. Ice will help with swelling as well as pain. Follow-up with your doctor for wound check in 2 to 3 days. Coding Level of Care Code ED Warehouse Processor for Ceci Fwd Exam Detailed
[2022-10-05] MEDS: oxyCODONE-APAP 5-325 mg Tablet 1 TAB PO (05:25)
[2022-10-05] MEDS: dexamethasone 4 mg Tablet 8 MG PO (06:16)
[2022-10-05] MEDS: clindamycin 150 mg Capsule 300 MG PO (06:16)
== END 2022-10-05 06:15 | disposition home or self-care (01) ==
PROVIDERS: Emergency Provider Emergency Medicine
DX: L03.012 Cellulitis of left finger (principal); Z86.14 Personal history of Methicillin resistant Staphylococcus aureus infection; Z87.891 Personal history of nicotine dependence
CPT/HCPCS: 73140; 99283; J8540

== ENCOUNTER 2022-10-20 06:06 | Emergency (ER) | payer OTHER, SELFPAY ==
[2022-10-20 06:09] VITALS: BP 116/78; PULSE 96; RESP 16; TEMP 36.5; O2SAT 100
--- NOTE | 2022-10-20 06:39 | ECG_ITS ---
[facility] Test Date: 2022-10-20 Pat Name: Florentin Borjas Department: Room: Gender: Male Tree Inspector: : 1985 Requested By: Immanuel Fuller Order Number: [id number] Samson MD: Tung Chapa M.D. Measurements Intervals [place] Rate: 82 P: 66 OR: 136 QRS: 80 QRSD: 91 T: 66 QT: 331 QTc: 388 Interpretive Statements SINUS RHYTHM POSSIBLE RIGHT VENTRICULAR CONDUCTION DELAY [RSR (QR) IN V1/V2] No previous ECG available for comparison Electronically Signed On 10-20-2022 19:04:43 SAND MILLER by Tung Chapa M.D. [email or web address] biloxiSYNQY Corporationacmc [facility] glenbeighKong[employer]/store/[id number] f
--- NOTE | 2022-10-20 06:39 | XR_ITS ---
WS: [id number] PORTABLE CHEST HISTORY: dyspnea/cough COMPARISON: None available. Lungs are clear and well expanded. No pleural effusion or pneumothorax. Cardiac size: Normal. Mediastinum/Aorta: Normal mediastinum. No osseous abnormality seen. XR/XR chest 1V portable [id number] IMPRESSION: Unremarkable portable chest.
--- NOTE | 2022-10-20 06:40 | W.ED.GENADLT ---
HPI - General Adult General: Chief complaint: Headache Stated complaint: SOB Time Seen by Provider: 10/20/22 06:39 Source: patient Mode of arrival: ambulatory History of Present Illness: 37-year-old male presents emergency room with complaints of shortness of breath. When I first came in the room he told me that he feels like he cannot breathe he had told the nurse he feel like his head was going to pop off. But when asked him specifically about sinus congestion he said he did not have any he had a little cough that began overnight. He said he stopped smoking 2 days ago he is no known major medical problems he previously had a prostatitis and evidently was on an extended course of ciprofloxacin but he is done without any also recently had a left index finger infection and was on a course of Levaquin and steroids that was about 2 weeks ago. He is not having any fever sweats or chills or productive cough now no vomiting or diarrhea. Attempts to get him to focus on a specific presenting complaint tends to settle on his complaint of what he describes as chest heaviness and difficulty breathing. He is afebrile his vital signs are stable he is in no respiratory distress. Location: head Relieving factors: none Exacerbating factors: none Associated symptoms: Reports cough and headache(s); Deny chest pain, confusion, diaphoresis, decreased appetite, dyspnea, fevers/chills, malaise, nausea, rash, palpitations, short of breath, syncope, vomiting or weakness Review of Systems Const: Denies: fever(s), chills, fatigue, malaise or diaphoresis ENMT: Denies: throat pain, ear or mastoid pain, nasal discharge or nasal congestion Card: Denies: chest pain, palpitations or syncope Resp: Denies: dyspnea GI: Denies: abdominal pain, nausea or vomiting : Denies: flank pain, difficulty urinating, dysuria, urinary frequency or urinary urgency Skin/Breast: Denies: rash or pruritus Neuro: Reports: headache(s); Denies: confusion PFSH ED PFSH: Medical History Chronic prostatitis History of torsion of testis Surgical History H/O cardiac radiofrequency ablation H/O hernia repair H/O knee surgery Family History Father Alcoholism Social History Smoking and tobacco status: former smoker Alcohol intake: current Alcohol intake frequency: few times a week Marital status: Single Current occupational status: employed History of recent travel: No Physical Exam Const: COMMON NORMALS: no acute distress GENERAL APPEARANCE: cooperative and comfortable ORIENTATION/CONSCIOUSNESS: Yes awake, Yes oriented to person, Yes oriented to place and Yes oriented to time HENMT: COMMON NORMALS: normocephalic, atraumatic and hearing grossly normal bilaterally HEAD & SCALP: normocephalic and atraumatic Resp: COMMON NORMALS: normal respiratory effort, No retractions, No use of accessory muscles and clear to auscultation bilaterally AUSCULTATION: clear to auscultation bilaterally Cardio: COMMON NORMALS: regular rate, regular rhythm and No murmurs present (Cardio) RATE: regular rate RHYTHM: regular rhythm GI: COMMON NORMALS: Soft to palpation and No hepatosplenomegaly present AUSCULTATION: Yes normoactive bowel sounds PALPATION: Yes Soft to palpation, No Tenderness to palpation present (GI), No Guarding due to palpation present (GI) and Yes No hepatosplenomegaly present Extremity: COMMON NORMALS: normal to inspection, capillary refill normal, no clubbing, cyanosis or edema, no calf tenderness and no pedal edema Neuro: SENSORIUM/ORIENTATION: Yes oriented to person, Yes oriented to place and Yes oriented to time Skin: COMMON NORMALS: no rashes or lesions noted GENERAL SKIN EXAM: no rashes or lesions noted Course Vital Signs: Vital signs: Vital Signs Temperature 97.7 F 10/20/22 06:09 Pulse Rate 78 10/20/22 07:34 Respiratory Rate 16 10/20/22 07:34 Blood Pressure 113/68 10/20/22 07:34 Pulse Oximetry 98 10/20/22 07:34 Oxygen Delivery Ri thod 10/20/22 06:09 [facility] - General Adult Medical Decision Making Labs imaging and EKGs are reviewed. Vital signs are all completely normal normal oxygen saturation chest x-ray and EKG are unremarkable there is no acute ST changes. On exam I cannot find any evidence of emergent condition. Will discharge home specula medicines have a mild viral upper respiratory infection treat symptomatically with [id number] cough cold remedies no evidence with history given to suggest COVID or influenza at this time. Medical Records I reviewed the patient's medical records. Lab Data I reviewed the patient's lab results. 10/20/22 06:58 10/20/22 06:58 Radiology Impressions Chest X-Ray 10/20/22 06:39 IMPRESSION: Unremarkable portable chest. Laboratory Results WBC 7.0 10^3/uL (4.0-10.0) 10/20/22 06:58 RBC 4.80 10^6/uL (4.1-5.3) 10/20/22 06:58 Hgb 15.2 g/dL (11.7-16.6) 10/20/22 06:58 Hct 45.1 % (42.0-52.0) 10/20/22 06:58 MCV 94.0 fl (80-94) 10/20/22 06:58 MCH 31.7 pg (28.0-34.0) 10/20/22 06:58 MCHC 33.7 g/dL (30.0-36.0) 10/20/22 06:58 RDW 12.2 % (12.1-15.1) 10/20/22 06:58 Plt Count 212 10^3/cmm (130-400) 10/20/22 06:58 MPV 9.5 fL (7.4-10.4) 10/20/22 06:58 Neut % (Auto) 48.7 % 10/20/22 06:58 Lymph % (Auto) 35.7 % 10/20/22 06:58 [place] % (Auto) 10.4 % 10/20/22 06:58 Eos % (Auto) 4.1 % 10/20/22 06:58 Baso % (Auto) 1.0 % 10/20/22 06:58 Neut # (Auto) 3.40 10^3/uL (1.8-7.7) 10/20/22 06:58 Lymph # (Auto) 2.5 10^3/uL (0.8-4.8) 10/20/22 06:58 [place] # (Auto) 0.7 10^3/uL (0.2-0.9) 10/20/22 06:58 Eos # (Auto) 0.3 10^3/uL (0.0-0.8) 10/20/22 06:58 Baso # (Auto) 0.1 10^3/uL (0.0-0.1) 10/20/22 06:58 Nucleated RBC % (auto) 0 % 10/20/22 06:58 Nucleated RBCs # 0.0 /100WBC 10/20/22 06:58 Sodium 136 mmol/L (136-145) 10/20/22 06:58 Potassium 4.1 mmol/L (3.5-5.1) 10/20/22 06:58 Chloride 99 mmol/L (98-107) 10/20/22 06:58 Carbon Dioxide 28 mmol/L (22-29) 10/20/22 06:58 Anion Gap 13.1 (5-19) 10/20/22 06:58 BUN 16 mg/dL (6-20) 10/20/22 06:58 Creatinine 0.8 mg/dL (0.7-1.2) 10/20/22 06:58 GFR Calculation 109.4 mL/min (90-130) 10/20/22 06:58 Glucose 94 mg/dL (65-115) 10/20/22 06:58 Calculated Osmolality 283 mOsm/kg (285-295) L 10/20/22 06:58 Calcium 8.8 mg/dL (8.5-10.5) 10/20/22 06:58 Troponin T Baseline 6 ng/L (0-15) 10/20/22 06:58 Discharge Plan Discharge Patient Disposition: Home Clinical Impression: Viral URI Condition: Stable Prescriptions: No Action mupirocin 2 % ointment 1 applic topical TID 90 Days Qty: 22 6RF ketorolac 10 mg tablet 10 mg PO TID PRN (Reason: pain) Qty: 10 0RF Discharge Orders: Discharge ED (Routine); Ordered 10/20/22 Ordered By: Immanuel Pack Discharge Diet: Usual diet Discharge Activity: Increase activity as tolerated Patient Instructions: Opioid Safety, Pain Management Activity Restrictions/Additional Instructions: You were seen today for complaint of headache and difficulty breathing. Your labs chest x-ray and EKG did not show any significant abnormalities. Your vital signs are stable is no sign on exam or history of any emergent medical condition at this time. Suspect he may have a mild viral upper respiratory infection recommend supportive cares jgwg-pvn-vscvral cough cold remedies or analgesics as needed if your symptoms worsen follow-up with your primary care doctor. Coding Level of Care Code ED Clipping Marker for Ceci Coronel Exam Detailed
[2022-10-20 07:09] LABS: Basophils # 0.1 10^3/uL (0.0-0.1); Eosinophils # 0.3 10^3/uL (0.0-0.8); Eosinophils % 4.1 %; Hematocrit 45.1 % (42.0-52.0); Hemoglobin 15.2 g/dL (11.7-16.6); Lymphocytes # 2.5 10^3/uL (0.8-4.8); Lymphocytes % 35.7 %; Mean Corpuscular HGB Conc 33.7 g/dL (30.0-36.0); Mean Corpuscular Hemoglobin 31.7 pg (28.0-34.0); Mean Platelet Volume 9.5 fL (7.4-10.4); Monocytes # 0.7 10^3/uL (0.2-0.9); Monocytes % 10.4 %; Neutrophils % 48.7 %; Nucleated Red Blood Cells % 0 %; Platelet Count 212 10^3/cmm (130-400); Red Cell Distribution Width 12.2 % (12.1-15.1)
[2022-10-20 07:25] LABS: Anion Gap 13.1 (5-19); Blood Urea Nitrogen 16 mg/dL (6-20); Calcium 8.8 mg/dL (8.5-10.5); Carbon Dioxide 28 mmol/L (22-29); Chloride 99 mmol/L (98-107); Creatinine Clr Calc Pharmacy 134.7746; Glomerular Filtration Rate 109.4 mL/min (90-130); Glucose 94 mg/dL (65-115); Osmolality Calculated 283 mOsm/kg (285-295); Potassium 4.1 mmol/L (3.5-5.1); Sodium 136 mmol/L (136-145)
[2022-10-20 07:26] LABS: Troponin(5th) Baseline 6 ng/L (0-15)
[2022-10-20] MEDS: acetaminophen 500 mg Tablet 1000 MG PO (07:31)
[2022-10-20 07:34] VITALS: BP 113/68; PULSE 78; RESP 16; O2SAT 98
== END 2022-10-20 08:28 | disposition home or self-care (01) ==
PROVIDERS: Emergency Provider Family Medicine
DX: J06.9 Acute upper respiratory infection, unspecified (principal); Z87.891 Personal history of nicotine dependence
CPT/HCPCS: 71045; 80048; 84484; 85025; 93005; 99285

== ENCOUNTER 2023-03-12 11:11 | Emergency (ER) | payer SELFPAY ==
[2023-03-12 11:18] VITALS: TEMP 36.2; BMI 25.8
--- NOTE | 2023-03-12 11:45 | ED_ITS ---
I was an attending physician on duty in the emergency department the time this patient was seen by the advanced nurse practitioner. This chart is being sent to me for signature per department protocol. I did not personally see or evaluate this patient. I was asked a question regarding the patient's foreign body sensation without any evidence of respiratory or gastrointestinal compro mise. Given the description and nature of history provided to me I suggested otolaryngology might be the first choice and if they do mirrored then discussion with GI coverage. HPI - General Adult General: Chief complaint: Airway/Esophagus Foreign Body Stated complaint: swallowed object, throat swelling Time Seen by Provider: 03/12/23 11:31 Source: patient Mode of arrival: ambulatory Limitations: no limitations History of Present Illness: Patient is a 37-year-old male who presents to ED today for evaluation of a possible foreign body. He states 5 days ago he was chopping branches and limbs when he felt a small piece of wood (he states either a branch/twig or piece of bark) fly into the back of his throat. Patient states he initially coughed/gagged and ultimately felt like the foreign body got stuck . He states he has had a foreign body sensation since this incident. He states he feels something near the left side of his throat. Patient states he has been able to eat and drink normally since incident. Denies trouble breathing. Onset (ago): day(s) (5 days ago) Location: mouth (throat) Severity: mild Quality: sharp Pain Consistency: constant Relieving factors: none Exacerbating factors: other (swallowing) Associated symptoms: Reports no associated symptoms; Deny chest pain, dyspnea, malaise, nausea or vomiting Treatments prior to arrival: other (tried baking soda water without relief) Review of Systems Const: Denies: fever(s), chills, body aches, fatigue or malaise ENMT: Reports: throat pain and odynophagia; Denies: enlarged tonsils, swelling of lips/tongue or dental pain Card: Denies: chest pain Resp: Denies: dyspnea GI: Denies: nausea or vomiting Musc: Reports: neck pain PFS ED PFSH: Medical History Chronic prostatitis History of torsion of testis Surgical History H/O cardiac radiofrequency ablation H/O hernia repair H/O knee surgery Family History Father Alcoholism Social History Smoking and tobacco status: former smoker Alcohol intake: current Alcohol intake frequency: few times a week Substance/Drug Use: never Marital status: Single Current occupational status: employed Physical Exam Const: COMMON NORMALS: no acute distress, average body habitus, patient oriented x3, no limitations, healthy appearing, alert and well nourished HENMT: COMMON NORMALS: normocephalic and atraumatic HEAD & SCALP: normal to inspection, normocephalic and atraumatic FACE & SINUS: normal facial exam MOUTH: Normal oral and palatal mucosa present, lip normal and tongue normal THROAT: posterior oropharynx normal, tonsils normal and uvula midline Neck/C-Spine: COMMON NORMALS: full ROM GENERAL: Yes normal visual inspection, No anterior neck swelling and No submandibular swelling Chest: COMMONS NORMALS: normal inspection of the chest and normal palpation of entire chest wall Resp: COMMON NORMALS: normal respiratory effort and clear to auscultation bilaterally AUSCULTATION: clear to auscultation bilaterally Cardio: COMMON NORMALS: regular rate and regular rhythm RATE: regular rate RHYTHM: regular rhythm Neuro: COMMON NORMALS: patient oriented x3 SENSORIUM/ORIENTATION: Yes alert Course Consultations: Consultation #1: Dr. Hale will see tomorrow and scope Vital Signs: Vital signs: Vital Signs Temperature 97.1 F L 03/12/23 11:18 [facility] - General Adult Medical Decision Making Patient will be seen by Dr. Hale tomorrow at 9:00 for further evaluation/direct visualization to assess for foreign body. Return to ED precautions given. Discharge Plan Discharge Patient Disposition: Home Clinical Impression: Sensation of foreign body in larynx Condition: Stable Prescriptions: No Action azithromycin 250 mg tablet See Rx Instructions PO .COMPLEX Qty: 6 0RF Rx Instructions: take 500 mg today (day 1), then 250 mg for 4 days (days 2-5) PO prednisone 20 mg tablet 20 mg PO DAILY 5 Days Qty: 5 0RF Discharge Orders: Discharge ED (Routine); Ordered 03/12/23 Ordered By: Sharee Jaeger Referrals: Marquis Hale MD [Physician] - Activity Restrictions/Additional Instructions: Somebody will contact you in the next few hours (either myself, ENT office, or our case management team) and let you know what time to arrive to Dr. Hale's office tomorrow for evaluation. Coding Level of Care Code ED Instructor Modeling for Ceci Coronel
--- NOTE | 2023-03-12 13:12 | DCPLANNER ---
Addendum entered by Dolly Mancilla 03/13/23 10:30: Patient had a follow up appointment scheduled with ENT for 03.13.23 - patient did attend appointment. Original Note: account services manager had message to schedule a follow up appointment for patient with ENT. account services manager sent patients information to the front office staff at ENT. Patients information will be printed and reviewed. Clinic will call patient with appointment information.
--- NOTE | 2023-03-13 13:18 | DCPLANNER ---
health information manager called patient due to no primary care physician - no answer at this time.
== END 2023-03-12 12:18 | disposition home or self-care (01) ==
PROVIDERS: Emergency Provider Physician Assistant
DX: R09.89 Other specified symptoms and signs involving the circulatory and respiratory systems (principal); Z87.891 Personal history of nicotine dependence
CPT/HCPCS: 99282

== ENCOUNTER → 2024-03-16 09:43 | Outpatient (BNVA) | payer MEDICAID, SELFPAY | PROVIDERS: Visit Provider Nurse Practitioner Family | DX: R31.9 Hematuria, unspecified (principal); R30.0 Dysuria | CPT/HCPCS: 81000 ==

== ENCOUNTER → 2024-03-18 15:04 | Outpatient (BNVA) | payer MEDICAID, SELFPAY | PROVIDERS: Visit Provider Nurse Practitioner Family | DX: R30.0 Dysuria (principal) | CPT/HCPCS: 87491; 87591 ==